=== PATIENT | male | born 1935 | race Caucasian/White ===

== ENCOUNTER 2021-07-10 23:34 | Emergency (ER) | payer MEDICARE, BC ==
[~2021-07-10] VITALS: Ht 152.4 cm; Wt 100.0 kg
[2021-07-11 00:11] VITALS: TEMP 98
[2021-07-11 00:36] LABS: COLLECTION METHOD CATHETER
[2021-07-11 00:43] LABS: PH 5 (5-8); SQUAMOUS EPITHELIAL None Seen /hpf (0-10); URINE APPEARANCE Clear (CLEAR/HAZY); URINE BACTERIA None Seen (NONE SEEN); URINE BILIRUBIN Negative (NEGATIVE); URINE BLOOD Negative (NEGATIVE); URINE COLOR Yellow (YELLOW); URINE GLUCOSE Negative (NEGATIVE); URINE KETONE Negative (NEGATIVE); URINE LEUKOCYTE ESTERASE Negative (NEGATIVE); URINE NITRATE Negative (NEGATIVE); URINE PROTEIN(semi-quant) Negative (NEGATIVE); URINE RBC 0-2 /hpf (0-2); URINE UROBILINOGEN Negative (NEGATIVE)
[2021-07-11 01:42] VITALS: BP 157/87; PULSE 73
== END 2021-07-11 01:42 | disposition home or self-care (01) ==
LOC: COL.ER 23:34
PROVIDERS: Physician Assistant
DX: R33.9 Retention of urine, unspecified (principal); I10 Essential (primary) hypertension